=== PATIENT | male | born 1975 | race Caucasian/White ===

== ENCOUNTER 2017-02-02 20:33 | Emergency (ER) | payer BC ==
[2017-02-02] MEDS ORDERED: Alum Hydrox/Mag Hydrox/Simeth 15 ML, Metoclopramide 5 MG, Lidocaine 2% 5 ML PO ONE ×3 (21:03)
[2017-02-02] MEDS ORDERED: Aspirin 81 MG Tab.Chew PO ONE (21:03)
[2017-02-02] MEDS ORDERED: Sodium Chloride 0.9% 2.5 ML Syringe FLUSH PRN (21:03)
[2017-02-02] MEDS ORDERED: Sodium Chloride 0.9% 10 ML Syringe FLUSH PRN (21:03)
[2017-02-02] MEDS ORDERED: Famotidine 20 MG/2 ML SDV IVPUSH ONE (21:03)
[2017-02-02] MEDS ORDERED: Ketorolac 30 MG/ML SDV IVPUSH ONE (21:03)
--- NOTE | 2017-02-02 21:50 | EDM.PDOC ---
ED HPI GENERAL MEDICAL PROBLEM - General Chief Complaint: Chest Pain Stated Complaint: CHEST PAINS Time Seen by Provider: 02/02/17 21:00 Source of Information: Reports: Patient History Limitations: Reports: No Limitations - History of Present Illness INITIAL COMMENTS - FREE TEXT/NARRATIVE: History of present illness: [42-year-old male presenting with complaints of chest pain, and general feelings of being unwell. He indicates that this has gotten progressively worse over the last couple days where it feels like the truck is sitting on his chest. ] Review of systems: As per history of present illness and below otherwise all systems reviewed and negative. Past medical history: As per history of present illness and as reviewed below otherwise noncontributory. Surgical history: As per history of present illness and as reviewed below otherwise noncontributory. Social history: No reported history of drug or alcohol abuse. Family history: As per history of present illness and as reviewed below otherwise noncontributory. Physical exam: HEENT: Atraumatic, normocephalic, pupils reactive, negative for conjunctival pallor or scleral icterus, mucous membranes moist, throat clear, neck supple, nontender, trachea midline. Lungs: Clear to auscultation, breath sounds equal bilaterally, chest nontender. Heart: S1S2, regular, negative for clicks, rubs, or JVD. Abdomen: Soft, nondistended, nontender. Negative for masses or hepatosplenomegaly. Negative for costovertebral tenderness. Pelvis: Stable nontender. Genitourinary: Deferred. Rectal: Deferred. Extremities: Atraumatic, negative for cords or calf pain. Neurovascular unremarkable. Neuro: Awake, alert, oriented. Cranial nerves II through XII unremarkable. Cerebellum unremarkable. Motor and sensory unremarkable throughout. Exam nonfocal. 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 Anterior Chest Pain Score (Numeric/FACES): 2 - Related Data Allergies Allergy/AdvReac Type Severity Reaction Status Date / Time No Known Allergies Allergy Verified 02/02/17 20:34 Home Meds: Home Meds Lisinopril 1 tab PO DAILY 02/02/17 [History] Past Medical History HEENT History: Reports: Other (See Below) Other HEENT History: deviated septum Cardiovascular History: Reports: Hypertension Respiratory History: Reports: None Psychiatric History: Reports: None - Infectious Disease History Infectious Disease History: Reports: None - Past Surgical History Cardiovascular Surgical History: Reports: None Social & Family History - Tobacco Use Smoking Status *Q: Never Smoker ED ROS GENERAL - Review of Systems Review Of Systems: See Below (See history of present illness) ED EXAM, GENERAL - Physical Exam Exam: See Below (History of present illness) Course - Vital Signs Last Recorded V/S: Last Vital Signs Temp 36.6 C 02/02/17 20:35 Pulse 113 H 02/02/17 20:35 Resp 16 02/02/17 20:35 BP 144/91 H 02/02/17 20:35 Pulse Ox 99 02/02/17 20:35 - Orders/Labs/Meds Orders: Active Orders 24 hr Category Date Time Status EKG 12 Lead [EKG Documentation Completion] [RC] STAT Care 02/02/17 20:40 Active Chest 2V [CR] Stat Exams 02/02/17 21:03 Taken AMYLASE [CHEM] Stat Lab 02/02/17 21:36 Received COMPREHENSIVE METABOLIC PN,CMP [CHEM] Stat Lab 02/02/17 21:36 Received LIPASE [CHEM] Stat Lab 02/02/17 21:36 Received Sodium Chloride 0.9% [Normal Saline] 1,000 ml Med 02/02/17 22:09 Active IV STAT Sodium Chloride 0.9% [Saline Flush] Med 02/02/17 21:03 Active 10 ml FLUSH ASDIRECTED PRN Sodium Chloride 0.9% [Saline Flush] Med 02/02/17 21:03 Active 2.5 ml FLUSH ASDIRECTED PRN Saline Lock Insert [OM.PC] Stat Oth 02/02/17 21:03 Ordered Medication Orders Sodium Chloride (Normal Saline) 1,000 mls @ 999 mls/hr IV STAT ONE Stop: 02/02/17 23:09 Sodium Chloride (Saline Flush) 10 ml FLUSH ASDIRECTED PRN PRN Reason: Keep Vein Open Sodium Chloride (Saline Flush) 2.5 ml FLUSH ASDIRECTED PRN PRN Reason: Keep Vein Open Labs: Laboratory Tests 02/02/17 02/02/17 02/02/17 Range/Units 21:36 21:36 21:36 WBC 14.28 H (4.0-11.0) K/uL RBC 5.82 (4.50-5.90) M/uL Hgb 17.0 (13.0-17.0) g/dL Hct 47.6 (38.0-50.0) % MCV 81.8 (80.0-98.0) fL MCH 29.2 (27.0-32.0) pg MCHC 35.7 (31.0-37.0) g/dL RDW Std Deviation 39.9 (28.0-62.0) fl RDW Coeff of Caryl 14 (11.0-15.0) % Plt Count 339 (150-400) K/uL MPV 9.50 (7.40-12.00) fL Neut % (Auto) 78.5 (48.0-80.0) % Lymph % (Auto) 9.5 L (16.0-40.0) % Ogle % (Auto) 10.4 (0.0-15.0) % Eos % (Auto) 1.5 (0.0-7.0) % Baso % (Auto) 0.1 (0.0-1.5) % Neut # (Auto) 11.2 H (1.4-5.7) K/uL Lymph # (Auto) 1.4 (0.6-2.4) K/uL Ogle # (Auto) 1.5 H (0.0-0.8) K/uL Eos # (Auto) 0.2 (0.0-0.7) K/uL Baso # (Auto) 0.0 (0.0-0.1) K/uL Nucleated RBC % 0.0 /100WBC Nucleated RBCs # 0 K/uL INR (0.86-1.11) Lactate 0.9 (0.20-2.00) mmol/L Troponin I < 0.10 (0.0-0.29) NG/ML 02/02/17 Range/Units 21:52 WBC (4.0-11.0) K/uL RBC (4.50-5.90) M/uL Hgb (13.0-17.0) g/dL Hct (38.0-50.0) % MCV (80.0-98.0) fL MCH (27.0-32.0) pg MCHC (31.0-37.0) g/dL RDW Std Deviation (28.0-62.0) fl RDW Coeff of Caryl (11.0-15.0) % Plt Count (150-400) K/uL MPV (7.40-12.00) fL Neut % (Auto) (48.0-80.0) % Lymph % (Auto) (16.0-40.0) % Ogle % (Auto) (0.0-15.0) % Eos % (Auto) (0.0-7.0) % Baso % (Auto) (0.0-1.5) % Neut # (Auto) (1.4-5.7) K/uL Lymph # (Auto) (0.6-2.4) K/uL Ogle # (Auto) (0.0-0.8) K/uL Eos # (Auto) (0.0-0.7) K/uL Baso # (Auto) (0.0-0.1) K/uL Nucleated RBC % /100WBC Nucleated RBCs # K/uL INR 0.97 (0.86-1.11) Lactate (0.20-2.00) mmol/L Troponin I (0.0-0.29) NG/ML Meds: Medications Generic Name Dose Route Start Last Admin Trade Name Hadleyq PRN Reason Stop Dose Admin Sodium Chloride 1,000 mls @ 999 mls/hr 02/02/17 22:09 Normal Saline IV 02/02/17 23:09 STAT ONE Sodium Chloride 10 ml 02/02/17 21:03 Saline Flush FLUSH ASDIRECTED PRN Keep Vein Open Sodium Chloride 2.5 ml 02/02/17 21:03 Saline Flush FLUSH ASDIRECTED PRN Keep Vein Open Discontinued Medications Generic Name Dose Route Start Last Admin Trade Name Freq PRN Reason Stop Dose Admin Aspirin 324 mg 02/02/17 21:03 02/02/17 21:39 Aspirin PO 02/02/17 21:04 324 mg ONETIME ONE Administration Al Hydroxide/Mg Hydroxide 15 0 ml 02/02/17 21:03 02/02/17 21:41 ml/ Metoclopramide HCl 5 mg/ PO 02/02/17 21:04 1 each Lidocaine HCl 5 ml ONETIME ONE Administration Famotidine 20 mg 02/02/17 21:03 02/02/17 21:40 Pepcid IVPUSH 02/02/17 21:04 20 mg ONETIME ONE Administration Ketorolac Tromethamine 30 mg 02/02/17 21:03 02/02/17 21:40 Toradol IVPUSH 02/02/17 21:04 30 mg ONETIME ONE Administration Departure - Departure Time of Disposition: 22:39 Disposition: Home, Self-Care 01 Condition: good Clinical Impression: Atypical chest pain Instructions: Nonspecific Chest Pain, [id number] Forms: ED Department Discharge Additional Instructions: The following information is given to patients seen in the emergency department who are being discharged to home. This information is to outline your options for follow-up care. We provide all patients seen in our emergency department with a follow-up referral. The need for follow-up, as well as the timing and circumstances, are variable depending upon the specifics of your emergency department visit. If you don't have a primary care physician on staff, we will provide you with a referral. We always advise you to contact your personal physician following an emergency department visit to inform them of the circumstance of the visit and for follow-up with them and/or the need for any referrals to a consulting specialist. The emergency department will also refer you to a specialist when appropriate. This referral assures that you have the opportunity for follow-up care with a specialist. All of these measure are taken in an effort to provide you with optimal care, which includes your follow-up. Under all circumstances we always encourage you to contact your private physician who remains a resource for coordinating your care. When calling for follow-up care, please make the office aware that this follow-up is from your recent emergency room visit. If for any reason you are refused follow-up, please contact the [facility] Emergency Department at and asked to speak to the emergency department charge nurse. Stay hydrated Followup with PCP 1-2 day Return To ED as needed as discussed - My Orders Last 24 Hours: My Active Orders 02/02/17 21:03 Chest 2V [CR] Stat Sodium Chloride 0.9% [Saline Flush] 10 ml FLUSH ASDIRECTED PRN Sodium Chloride 0.9% [Saline Flush] 2.5 ml FLUSH ASDIRECTED PRN Saline Lock Insert [OM.PC] Stat 02/02/17 21:36 AMYLASE [CHEM] Stat COMPREHENSIVE METABOLIC PN,CMP [CHEM] Stat LIPASE [CHEM] Stat 02/02/17 22:09 Sodium Chloride 0.9% [Normal Saline] 1,000 ml IV STAT - Assessment/Plan Last 24 Hours: My Active Orders 02/02/17 21:03 Chest 2V [CR] Stat Sodium Chloride 0.9% [Saline Flush] 10 ml FLUSH ASDIRECTED PRN Sodium Chloride 0.9% [Saline Flush] 2.5 ml FLUSH ASDIRECTED PRN Saline Lock Insert [OM.PC] Stat 02/02/17 21:36 AMYLASE [CHEM] Stat COMPREHENSIVE METABOLIC PN,CMP [CHEM] Stat LIPASE [CHEM] Stat 02/02/17 22:09 Sodium Chloride 0.9% [Normal Saline] 1,000 ml IV STAT
[2017-02-02] MEDS ORDERED: Sodium Chloride 0.9% 1,000 ML IV ONE (22:09)
[2017-02-02 22:43] LABS: CHLORIDE,CL 104 mmol/L (98-110); SODIUM,NA 140 mmol/L (136-146)
[2017-02-02] MEDS ORDERED: Iopamidol 755 MG/ML 500 ML Multipack Bottle IVPUSH STA (23:47)
[2017-02-03 00:19] VITALS: BP 137/93
--- NOTE | 2017-02-06 10:40 | CR ---
EXAM DATE: 02/02/17 PATIENT'S AGE: 42 Patient: DAVID BANG Facility: [place], [place] Site . Site : 1975 Study: XRay Chest [id number]/26/2017 10:12:26 PM Ordering Physician: Doctor Moyer Final Report: INDICATION: Chest pain TECHNIQUE: Chest 2 views. COMPARISON: None available FINDINGS: Cardiovascular and mediastinum: Heart size and vasculature are normal in caliber and appearance. Mediastinum is within normal limits. Lungs and pleural spaces: Lungs are clear. No sign of infiltrate or mass. No sign of pleural effusion. No pneumothorax. Bones and soft tissues: A chronic appearing deformity of the distal left clavicle. IMPRESSION: No sign of acute disease. Dictated by Mal Chand MD @ 02/02/2017 10:26:21 PM Dictated by: Mal Chand MD @ 02/02/2017 22:26:36 (Electronic Signature) Report Signed by Proxy. JO
--- NOTE | 2017-02-06 10:41 | CT ---
EXAM DATE: 02/02/17 PATIENT'S AGE: 42 Patient: DAVID BANG Facility: [place], [place] Site . Site : 1975 Study: CT Abdomen/Pelvis [id number]/26/2017 11:44:30 PM Ordering Physician: Doctor Moyer Final Report: INDICATION: abdominal pain CT ABDOMEN AND PELVIS WITH CONTRAST TECHNIQUE: Multidetector CT imaging was performed through the abdomen and pelvis following intravenous and oral contrast administration. Coronal and sagittal reconstructions were generated. COMPARISON: None. FINDINGS: Included portions of the lower chest show the lung bases to be clear. The liver, spleen, gallbladder, pancreas, adrenals, and kidneys show no significant findings. Bowel loops are of normal caliber and demonstrate no wall thickening. The appendix is normal. No free fluid or free air is identified. The abdominal aorta appears normal in caliber. No abnormally enlarged lymph nodes are seen. The urinary bladder, prostate, and seminal vesicles are within normal limits. Visualized bones show no significant findings. IMPRESSION: No acute abnormality identified. No cause for the patient`s symptoms is evident. KAL KNOX MD [employer] Dictated by: Brian Knox MD @ 02/02/2017 23:54:15 (Electronic Signature) Report Signed by Proxy. ZUCKER HILLSIDE HOSPITALJacqueline
== END 2017-02-03 00:20 | disposition home or self-care (01) ==
LOC: MW.ED 20:33
DX: R07.89 Other chest pain (principal); D72.829 Elevated white blood cell count, unspecified; I10 Essential (primary) hypertension
CPT/HCPCS: 36415; 71020; 74177; 80053; 82150; 83605; 83690; 84484; 85025; 85610; 93005; 96361; 96374; 96375; 99285; A9270; J1885; J7040; Q9967; 99284